=== PATIENT | female | born 1930 | race Caucasian/White ===

== ENCOUNTER 2016-09-16 01:48 | Inpatient (IN) | payer MEDICARE ==
[2016-09-16] VITALS (16 sets, daily range): BP systolic 99–145; BP diastolic 55–65; PULSE 56–64; RESP 16–20; TEMP 97.8–98.4; O2SAT 56–100
[~2016-09-16] VITALS: Ht 160 cm; Wt 55.7 kg
[~2016-09-16 01:48] MED LIST: ASPI81CH37 CHEW; PROP10TA6 PO
--- NOTE | 2016-09-16 02:01 | PD ---
HPI Chief Complaint: Cardiac Complaint Time Seen by Provider: 02:00 Travel History International Travel<30 days: No Contact w/Intl Traveler<30days: No Traveled to known affect area: No History of Present Illness HPI Patient is 87. She arrives with chest pressure which started after she got in bed tonight to sleep. She called EMS. She received aspirin and Zofran en route to the ER and symptoms improved. She states she may have had shortness of breath while she had the chest pain. Severity was moderate. She denies a personal history of coronary artery disease. She has not personal history of diabetes hypertension or hyperlipidemia. She is an avid golfer and quite active typically. She denies a past medical history. [facility] Social History Tobacco Use: No Allergies-Medications (Allergen,Severity, Reaction): Coded Allergies: No Known Allergies (Unverified , 09/12/16) Reported Meds & Prescriptions Reported Meds & Active Scripts Active Propranolol (Propranolol HCl) 10 Mg Tab 10 Mg PO Q12HR Reported Aspirin Low Dose (Aspirin) 81 Mg Chew 81 Mg CHEW DAILY Review of Systems Except as stated in HPI: all other systems reviewed are Neg General / Constitutional: No: Fever Cardiovascular: Positive: Chest Pain or Discomfort Physical Exam Narrative GENERAL: 86-year-old female pleasant well-nourished well-developed SKIN: Focused skin assessment warm/dry. HEAD: Atraumatic. Normocephalic. EYES: Pupils equal and round. No scleral icterus. No injection or drainage. ENT: No nasal bleeding or discharge. Mucous membranes pink and moist. NECK: Trachea midline. No JVD. CARDIOVASCULAR: Regular rate and rhythm. No murmur appreciated. RESPIRATORY: No accessory muscle use. Clear to auscultation. Breath sounds equal bilaterally. GASTROINTESTINAL: Abdomen soft, non-tender, nondistended. Hepatic and splenic margins not palpable. MUSCULOSKELETAL: No obvious deformities. No clubbing. No cyanosis. No edema. NEUROLOGICAL: Awake and alert. No obvious cranial nerve deficits. Motor grossly within normal limits. Normal speech. PSYCHIATRIC: Appropriate mood and affect; insight and judgment normal. Data Data Last Documented VS Vital Signs Date Time Temp Pulse Resp B/P Pulse Ox O2 Delivery O2 Flow Rate FiO2 09/16/16 02:40 56 18 100 09/16/16 01:56 97.8 145/65 Vital signs reviewed Orders Electrocardiogram (09/16/16 02:07) Basic Metabolic Panel (Bmp) (09/16/16 02:07) B-Type Natriuretic Peptide (09/16/16 02:07) Ckmb (Isoenzyme) Profile (09/16/16 02:07) Complete Blood Count With Diff (09/16/16 02:07) Magnesium (Mg) (09/16/16 02:07) Prothrombin Time / Inr (Pt) (09/16/16 02:07) Act Partial Throm Time (Ptt) (09/16/16 02:07) Troponin I (09/16/16 02:07) Chest, Single Ap (09/16/16 02:07) Ecg Monitoring (09/16/16 02:07) Bilateral Bp Monitoring (09/16/16 02:07) Iv Access Insert/Monitor (09/16/16 02:07) Oximetry (09/16/16 02:07) Oxygen Administration (09/16/16 02:07) Sodium Chloride 0.9% Flush (Ns Flush) (09/16/16 02:15) Ondansetron Inj (Zofran Inj) (09/16/16 02:45) Activity Bed Rest With Brp (09/16/16 04:59) Vital Signs (Adult) Q4H (09/16/16 04:59) Cardiac Rhythm .As Directed (09/16/16 04:59) Notify Dr: Other .PRN (09/16/16 04:59) Notify Parameters (09/16/16 04:59) Resp Oxygen Nasal Cannula (09/16/16 ) Diet Npo (09/16/16 Breakfast) Ckmb (Isoenzyme) Profile (09/16/16 04:59) Ckmb (Isoenzyme) Profile (09/16/16 07:59) Troponin I (09/16/16 04:59) Troponin I (09/16/16 07:59) Electrocardiogram (09/16/16 04:59) Electrocardiogram (09/16/16 07:59) ^ Obtain (09/16/16 04:59) Acetamin-Hydrocod 325-7.5 Mg ([place] 7.5 (09/16/16 05:00) Morphine Inj (Morphine Inj) (09/16/16 05:00) Ondansetron Inj (Zofran Inj) (09/16/16 05:00) Nitroglycerin Sl (Nitrostat Sl) (09/16/16 05:00) Aspirin Chew (Aspirin Chew) (09/16/16 05:00) Aspirin (Aspirin) (09/16/16 09:00) Temazepam (Restoril) (09/16/16 05:00) Alprazolam (Xanax) (09/16/16 05:00) Striker Off / Telemetry JOHN.Q8H (09/16/16 04:59) Admit Order (Ed Use Only) (09/16/16 04:59) Labs Laboratory Tests Test 09/16/16 02:19 White Blood Count 13.0 TH/MM3 Red Blood Count 4.62 MIL/MM3 Hemoglobin 13.9 GM/DL Hematocrit 42.9 % Mean Corpuscular Volume 92.8 FL Mean Corpuscular Hemoglobin 30.1 PG Mean Corpuscular Hemoglobin 32.4 % Concent Red Cell Distribution Width 13.4 % Platelet Count 198 TH/MM3 Mean Platelet Volume 8.9 FL Neutrophils (%) (Auto) 78.6 % Lymphocytes (%) (Auto) 11.2 % Monocytes (%) (Auto) 8.0 % Eosinophils (%) (Auto) 1.6 % Basophils (%) (Auto) 0.6 % Neutrophils # (Auto) 10.2 TH/MM3 Lymphocytes # (Auto) 1.4 TH/MM3 Monocytes # (Auto) 1.0 TH/MM3 Eosinophils # (Auto) 0.2 TH/MM3 Basophils # (Auto) 0.1 TH/MM3 CBC Comment DIFF FINAL Differential Comment Prothrombin Time 11.6 SEC Prothromb Time International 1.0 RATIO Ratio Activated Partial 24.2 SEC Thromboplast Time Sodium Level 143 MEQ/L Potassium Level 4.0 MEQ/L Chloride Level 108 MEQ/L Carbon Dioxide Level 28.0 MEQ/L Anion Gap 7 MEQ/L Blood Urea Nitrogen 21 MG/DL Creatinine 1.16 MG/DL Estimat Glomerular Filtration 45 ML/MIN Rate Random Glucose 178 MG/DL Calcium Level 8.5 MG/DL Magnesium Level 2.3 MG/DL Total Creatine Kinase 47 U/L Troponin I LESS THAN 0.02 NG/ML B-Type Natriuretic Peptide 107 PG/ML MDM Medical Decision Making Medical Screen Exam Complete: Yes Emergency Medical Condition: Yes Medical Record Reviewed: Yes Differential Diagnosis NSTEMI, unstable angina, coronary vasospasm, PE, PTX, aortic dissection, pericarditis, myocarditis, endocarditis, PNA, esophageal disease, aneurysm, musculoskeletal etiologies, anxiety, cocaine/sympathomimetic abuse Narrative Course EKG reveals a sinus bradycardia with a rate of 58 T-wave inversions in I and aVL appear new in comparison to 4 days prior, ST changes in the precordial leads looked similar to 4 days prior CBC & BMP Diagram 09/16/16 02:19 Troponin is less than 0.02 The BNP is 107 Chest x-ray reveals no acute cardiopulmonary disease The patient would benefit from a chest pain center protocol evaluation. She is agreeable with plan. Diagnosis Primary Impression: Chest pain Qualified Code: R07.9 - Chest pain, unspecified type Admitting Information Admitting Physician Requests: Tyler Baptiste MD Sep 16, 2016 02:01
[2016-09-16] MEDS ORDERED: SODIUM CHLORIDE 0.9% FLUSH 10 ML FLUSH IVF PRN (02:15)
--- NOTE | 2016-09-16 02:37 | RADRPT ---
EXAM DATE/TIME: 09/16/2016 02:19 [place] COMPARISON: No previous studies available for comparison. INDICATIONS : Nausea and vomiting. MEDICAL HISTORY : None. SURGICAL HISTORY : None. ENCOUNTER: Initial ACUITY: 1 day PAIN SCORE: 0/10 LOCATION: Bilateral chest FINDINGS: A single view of the chest demonstrates the lungs to be symmetrically aerated without evidence of mas s, infiltrate or effusion. The cardiomediastinal contours are unremarkable. Osseous structures are intact. CONCLUSION: No acute disease. Cabrera Cook Jr., MD on September 16, 2016 at 2:36 Board Certified Radiologist. This report was verified electronically.
[2016-09-16] MEDS ORDERED: ONDANSETRON HCL 4 MG/2 ML VIAL IV PUSH ONE (02:45)
[2016-09-16 02:54] LABS: AUTOMATED NEUTROPHIL # 10.2 TH/MM3 (1.8-7.7); BASOPHIL # 0.1 TH/MM3 (0-0.2); BASOPHIL % 0.6 % (0.0-2.0); EOSINOPHIL # 0.2 TH/MM3 (0-0.4); EOSINOPHIL % 1.6 % (0.0-4.0); HEMATOCRIT 42.9 % (35.0-46.0); HEMO FLAGS DIFF FINAL; LYMPH % 11.2 % (9.0-44.0); LYMPHOCYTE # 1.4 TH/MM3 (1.0-4.8); MEAN CELL VOLUME 92.8 FL (80.0-100.0); MEAN CORPUSCULAR HEMOGLOBIN 30.1 PG (27.0-34.0); MEAN CORPUSCULAR HGB CONC 32.4 % (32.0-36.0); NEUT % 78.6 % (16.0-70.0); PLATELET COUNT 198 TH/MM3 (150-450); RED BLOOD COUNT 4.62 MIL/MM3 (4.00-5.30); RED CELL DISTRIBUTION WIDTH 13.4 % (11.6-17.2)
[2016-09-16 03:07] LABS: APTT (PATIENT) 24.2 SEC (24.3-30.1); PROTHROMBIN TIME - PATIENT 11.6 SEC (9.8-11.6)
[2016-09-16 03:14] LABS: ANION GAP 7 MEQ/L (5-15); BLOOD UREA NITROGEN 21 MG/DL (7-18); CHLORIDE 108 MEQ/L (98-107); GLOMERULAR FILTRATION RATE 45 ML/MIN (>89); MAGNESIUM 2.3 MG/DL (1.5-2.5); SODIUM (NA) 143 MEQ/L (136-145)
[2016-09-16 03:34] LABS: CREATINE KINASE 47 U/L (26-192)
[2016-09-16] MEDS ORDERED: ASPIRIN 81 MG CHEW TAB PO ONE (05:00)
[2016-09-16] MEDS ORDERED: ONDANSETRON HCL 4 MG/2 ML VIAL IV PRN (05:00)
[2016-09-16] MEDS ORDERED: MORPHINE SULFATE 4 MG/ML INJ IV PRN (05:00)
[2016-09-16] MEDS ORDERED: TEMAZEPAM 15 MG CAP PO PRN (05:00)
[2016-09-16] MEDS ORDERED: NITROGLYCERIN 0.4 MG SL 25 TABS/BTL SL PRN (05:00)
[2016-09-16] MEDS ORDERED: ALPRAZolam 0.25 MG TAB PO PRN (05:00)
[2016-09-16] MEDS ORDERED: ACETAMINOPHEN/HYDROcodone 325 MG/7.5 MG TAB PO PRN (05:00)
[2016-09-16 07:31] LABS: CREATINE KINASE 107 U/L (26-192)
[2016-09-16 07:49] LABS: CKMB 20.8 NG/ML (0.5-3.6)
--- NOTE | 2016-09-16 08:45 | HHI.HP ---
HPI Primary Care Physician Unknown Chief Complaint Chest pressure History of Present Illness 86-year-old female presents to the emergency room for further evaluation of chest pressure. She is somewhat of a poor historian however she does remember trying to go to sleep around 11 PM and she did not feel well. Throughout the evening she continued not to feel well and she called her son. He lives in [place] and told her to call EMS. She cannot recall exact symptoms but remembers being diaphoretic. No shortness of breath, nausea, or vomiting. No known precipitating or relieving factors. Currently she is chest pain free. She has no pertinent medical history. No diabetes, hypertension, hyperlipidemia , or coronary artery disease. She is active. Has never required a supervisor purification. Review of Systems General: No fatigue,weakness, fever, chills, recent illness, or change in appetite. Has been in her general state of health. HEENT: No VIGIL, no vision changes CV: As stated above, no current chest pressure or pain. RESP: No SOB or cough GI: No nausea, vomiting, or diarrhea. No change in appetite, no unintentional weight gain or weight loss EXT: No lower leg edema, no parathesias MS: No discomfort or change in ROM NEURO: No change in memory, dizziness, difficulty with balance, LOC, motor/ sensory deficits Past Family Social History Allergies: Coded Allergies: No Known Allergies (Unverified , 09/12/16) Past Medical History None Past Surgical History None Reported Medications Reported Meds & Active Scripts Active Propranolol (Propranolol HCl) 10 Mg Tab 10 Mg PO [id number] not remember why she takes beta aaron, states she has been on it most of her adult life. Reported Aspirin Low Dose (Aspirin) 81 Mg Chew 81 Mg CHEW DAILY Active Ordered Medications Current Medications Medications (Trade) Dose Ordered Sig/Kaelyn Route Start Time Stop Time Status Last Admin ([place] 7.5-325 Mg) 1 tab Q4H PRN PO 09/16/16 05:00 (Morphine Inj) 2 mg Q4H PRN IV 09/16/16 05:00 (Zofran Inj) 4 mg Q6H PRN IV 09/16/16 05:00 (Nitrostat Sl) 0.4 mg Q5M PRN SL 09/16/16 05:00 (Aspirin) 325 mg DAILY PO 09/16/16 09:00 (Restoril) 15 mg HS PRN PO 09/16/16 05:00 (Xanax) 0.25 mg Q8H PRN PO 09/16/16 05:00 Social History No known diabetes, hyper tension, or hyperlipidemia. She is active and golfs daily. Lives alone, independent. Past cardiac testing No recent stress testing, never had cardiac catheterization, never required a supervisor purification. Physical Exam Vital Signs Vital Signs Date Time Temp Pulse Resp B/P Pulse Ox O2 Delivery O2 Flow Rate FiO2 09/16/16 07:14 64 16 129/58 97 Nasal Cannula 2 09/16/16 05:19 Nasal Cannula 2.00 09/16/16 02:40 56 18 100 09/16/16 01:58 56 18 99 09/16/16 01:56 97.8 57 18 145/65 99 Laboratory Laboratory Tests Test 09/16/16 09/16/16 02:19 06:37 White Blood Count 13.0 Red Blood Count 4.62 Hemoglobin 13.9 Hematocrit 42.9 Mean Corpuscular Volume 92.8 Mean Corpuscular Hemoglobin 30.1 Mean Corpuscular Hemoglobin 32.4 Concent Red Cell Distribution Width 13.4 Platelet Count 198 Mean Platelet Volume 8.9 Neutrophils (%) (Auto) 78.6 Lymphocytes (%) (Auto) 11.2 Monocytes (%) (Auto) 8.0 Eosinophils (%) (Auto) 1.6 Basophils (%) (Auto) 0.6 Neutrophils # (Auto) 10.2 Lymphocytes # (Auto) 1.4 Monocytes # (Auto) 1.0 Eosinophils # (Auto) 0.2 Basophils # (Auto) 0.1 CBC Comment DIFF FINAL Differential Comment Prothrombin Time 11.6 Prothromb Time International 1.0 Ratio Activated Partial 24.2 Thromboplast Time Sodium Level 143 Potassium Level 4.0 Chloride Level 108 Carbon Dioxide Level 28.0 Anion Gap 7 Blood Urea Nitrogen 21 Creatinine 1.16 Estimat Glomerular Filtration 45 Rate Random Glucose 178 Calcium Level 8.5 Magnesium Level 2.3 Total Creatine Kinase 47 107 Troponin I LESS THAN 0.02 0.91 B-Type Natriuretic Peptide 107 Creatine Kinase MB 20.8 Result Diagram: 09/16/1621809/16/16218 Imaging Last Impressions Chest X-Ray 09/16/16206 Signed Impressions: Service Date/Time: Ambrosio, September 16, 2016 02:19 - CONCLUSION: No acute disease. Cabrera Cook Jr., MD Assessment and Plan Assessment and Plan #1 Chest painpatient admitted to chest pain center however second troponin elevated during evening. Consult placed to hospitalist for further evaluation. This is been discussed with patient and she is agreeable to this plan a care. Kim Albrecht [facility] Sep 16, 2016 08:45
[2016-09-16] MEDS: ASPIRIN 325 MG TAB PO SCH (09:00)
[2016-09-16] MEDS ORDERED: PILL SPLITTER OTHER PRN (09:45)
[2016-09-16] MEDS ORDERED: HEPARIN SODIUM - IV 10,000 UNITS/10 ML VIAL IV ONE (10:00)
[2016-09-16] MEDS: METOPROLOL TARTRATE 25 MG TAB PO SCH ×2 (10:00→21:41)
[2016-09-16] MEDS ORDERED: HEPARIN-D5W INJ 250 ML IV SCH (10:00)
--- NOTE | 2016-09-16 10:41 | HHI.PR ---
Subjective Remarks Patient presented with transfer care due to elevated troponin. Patient seems like a very poor historian. She was interviewed in the [place]. Patient stated that she denies any shortness of breathing or any chest pain and that she came into the hospital because she felt. Reviewing medical records patient was admitted due to chest pain. Patient stated that her son told her to come to the emergency department. At the moment she denies any chest pain, shortness of breathing, lightheadedness dizziness, palpitation. She stated that she never had any symptoms. Patient is AAO 3. Patient denies any history of any types of bleed. Patient nurse is at the bedside. Objective Vitals Vital Signs Date Time Temp Pulse Resp B/P Pulse Ox O2 Delivery O2 Flow Rate FiO2 09/16/16 09:44 56 18 132/61 97 Nasal Cannula 2 09/16/16 09:36 Nasal Cannula 2.00 09/16/16 07:14 64 16 129/58 97 Nasal Cannula 2 09/16/16 05:19 Nasal Cannula 2.00 09/16/16 02:40 56 18 100 09/16/16 01:58 56 18 99 09/16/16 01:56 97.8 57 18 145/65 99 Result Diagram: 09/16/169 09/16/16218 Objective Remarks GENERAL: in NAD CARDIOVASCULAR: Regular rate and rhythm without murmurs, gallops, or rubs. RESPIRATORY: Breath sounds equal bilaterally. No accessory muscle use. GASTROINTESTINAL: Abdomen soft, non-tender, nondistended. MUSCULOSKELETAL: No cyanosis, or edema. BACK: Nontender without obvious deformity. No CVA tenderness. Medications and IVs Current Medications Sodium Chloride (NS Flush) 2 ml UNSCH PRN IVF FLUSH AFTER USING IV ACCESS; Start 09/16/16 at 02:15 Ondansetron HCl (Zofran Inj) 4 mg ONCE ONCE IV PUSH ; Start 09/16/16 at 02:45; Stop 09/16/16 at 02:46; Status DC Acetaminophen/ Hydrocodone Bitart ([place] 7.5-325 Mg) 1 tab Q4H PRN PO PAIN SCALE 1 TO 7; Start 09/16/16 at 05:00 Morphine Sulfate (Morphine Inj) 2 mg Q4H PRN IV PAIN SCALE 8 TO 10; Start 09/16 at 05:00 Ondansetron HCl (Zofran Inj) 4 mg Q6H PRN IV NAUSEA; Start 09/16/16 at 05:00 Nitroglycerin (Nitrostat Sl) 0.4 mg Q5M PRN SL CHEST PAIN; Start 09/16/16 at 05 :00 Aspirin (Aspirin Chew) 162 mg STAT ONCE PO Last administered on 09/16/16 05: 46; Start 09/16/16 at 05:00; Stop 09/16/16 at 05:01; Status DC Aspirin (Aspirin) 325 mg DAILY PO Last administered on 09/16/16 09:00; Start 09/16/16 at 09:00 Temazepam (Restoril) 15 mg HS PRN PO INSOMNIA; Start 09/16/16 at 05:00 Alprazolam (Xanax) 0.25 mg Q8H PRN PO ANXIETY; Start 09/16/16 at 05:00 Metoprolol Tartrate (Lopressor) 12.5 mg Q12HR PO ; Start 09/16/16 at 10:00 Miscellaneous (Pill Splitter) 1 ea UNSCH PRN OTHER SEE LABEL COMMENTS; Start at 09:45 Heparin Sodium (Porcine) (Heparin Inj) 3,000 units ONCE ONCE IV ; Start at 10:00; Stop 09/16/16 at 10:06; Status DC Heparin Sodium (Porcine) (Heparin Inj) 5,000 units UNSCH PRN IV APTT LESS THAN 25; Start 09/16/16 at 16:00 Heparin Sodium (Porcine) 2500 units 2,500 units UNSCH PRN IV APTT 25 TO 39; Start 09/16/16 at 16:00 Heparin Sodium/ Dextrose (Heparin-D5W Inj) 250 ml @ 0 mls/hr TITRATE IV ; Start 09/16/16 at 10:00 Nitroglycerin (Nitroglycerin 2% Oint) 0.5 inch Q6HR TOPICAL ; Start 09/16/16 at 12:00 A/P Assessment and Plan 86-year-old female who presented with Chest pain -Patient is poor historian she denied this to me by medical records stated that she complained of chest pain. -Patient troponin went from 0.02 to 0.91 to 1.62. -Concerning for an NSTEMI. I will start heparin drip, applied Nitropaste and give low dose of metoprolol if tolerated. Patient is already on aspirin. Will monitor and this CIC on telemetry. -I educated patient extensively on treatment risk, benefits and side effects of medication especially in regards to heparin drip and she is in agreement with treatment. -Will consult consultant rn for possible cardiac catheterization. -We'll also order an echo. NSTEMI -See treatment as above. Renal insufficiency -There is no baseline. Most likely this is chronic. Creatinine is 1.16 and GFR 45. -Continue to monitor closely. -Strict ins and outs. -Try to avoid nephrotoxins. -Will put patient on IV fluids since she may have a cardiac catheterization. DVT prophylaxis -She would be on a heparin drip. Discharge Planning Patient most likely will be discharged to home after treatment. Noelle Hurd MD Sep 16, 2016 10:41
[2016-09-16] MEDS: SODIUM CHLOR 0.9% 1000 ML INJ 1,000 ML IV SCH ×2 (11:06→21:43)
[2016-09-16] MEDS: NITROGLYCERIN 2% OINT 1 GM PACKET TOPICAL SCH ×2 (12:00→17:47)
[2016-09-16 12:55] LABS: APTT (PATIENT) 68.9 SEC (24.3-30.1); INTERNATIONAL NORMALIZED RATIO 1.1 RATIO
[2016-09-16 13:01] LABS: HEMATOCRIT 39.4 % (35.0-46.0); MEAN CELL VOLUME 90.1 FL (80.0-100.0); MEAN CORPUSCULAR HEMOGLOBIN 30.6 PG (27.0-34.0); PLATELET COUNT 179 TH/MM3 (150-450); RED BLOOD COUNT 4.37 MIL/MM3 (4.00-5.30); RED CELL DISTRIBUTION WIDTH 13.2 % (11.6-17.2); REVIEW FLAG FINAL; WHITE BLOOD COUNT 11.2 TH/MM3 (4.0-11.0)
--- NOTE | 2016-09-16 15:02 | EKG ---
Date Performed: 09/16/2016 Time Performed: 08:06:37 PTAGE: 86 years EKG: Sinus rhythm POSSIBLE LEFT ATRIAL ENLARGEMENT INCOMPLETE RIGHT BUNDLE BRANCH BLOCK INFERIOR MYOCARDIAL INFARCTION ABNORMAL ECG Nonspecific ST and T wave abnormalities PREVIOUS TRACING : 09/16/2016 05.33 Since previous tracing, no significant change noted DOCTOR: Alvino Mccormick Interpretating Date/Time 09/16/2016 15:02:33
[2016-09-16] MEDS ORDERED: HEPARIN SODIUM - IV 10,000 UNITS/10 ML VIAL IV PRN ×2 (16:00)
[2016-09-16] MEDS: ATORVASTATIN 40 MG TAB PO SCH (21:41)
--- NOTE | 2016-09-16 21:54 | MB ---
cc: YOUSUF JOLLEY DO DATE OF CONSULTATION 09/16/2016 REASON FOR CONSULTATION Chest pain with elevated troponins. HISTORY OF THE PRESENT ILLNESS Emily Olsen is a very pleasant 86-year-old female who presented to [facility] emergency room on September 16, 2016 due to chest pain. She attempted to try go to sleep the night before and did not feel well. Throughout the evening she continued to not feel well and called her son. She did remember having some chest pain and mildly diaphoretic, although she is not the best historian. Her son told her to call EMS. She denies shortness of breath, nausea or vomiting. On arrival she was originally scheduled placed in the chest pain unit but after having elevated troponins was admitted to the floor. In seeing her she is currently chest painfree on a heparin drip. PAST MEDICAL HISTORY Denies. PAST SURGICAL HISTORY Denies. ALLERGIES NO KNOWN DRUG ALLERGIES. MEDICATIONS Aspirin 81 mg daily. SOCIAL HISTORY She currently lives alone and independent. Denies tobacco, alcohol or drug abuse. FAMILY HISTORY Denies premature coronary artery disease or sudden cardiac within the family. REVIEW OF SYSTEMS 14-systems were reviewed including osteopathic. Pertinent positives and negatives as above, otherwise negative. PHYSICAL EXAMINATION VITAL SIGNS: Temperature 98.4, heart rate 60, blood pressure 119/65, respirations 20, pulse ox 96% on room air. GENERAL: In general the patient appears well in no acute distress. Alert, awake and oriented x3. HEENT: Extraocular muscles intact. Mucous membranes moist. NECK: Supple. No JVD at 45 degrees. No carotid bruits heard bilaterally. Carotid stroke is brisk in nature. CARDIOVASCULAR: Heart is regular rate and rhythm. Positive first and second heart sounds with a 1/6 crescendo-decrescendo murmur to the right sternal border. LUNGS: Clear to auscultation bilaterally. No wheezes, rales or rhonchi. ABDOMEN: Soft, nontender, nondistended. No organomegaly noted. EXTREMITIES: Show no clubbing, cyanosis or edema. Femoral and distal pulses intact bilaterally. NEUROLOGIC: No focal deficits. OSTEOPATHIC: Mild kyphoscoliosis. No lordosis or paraspinal tender points. LABORATORY FINDINGS Hemoglobin 13.4, hematocrit 39.4, platelets 179. Potassium 4.0, BUN 21, creatinine 1.16. Troponin 1.62. Electrocardiogram (September 16, 2016 at 08:06) sinus rhythm at 66 beats per minute, possible left atrial enlargement, incomplete right bundle branch block, possible old inferior infarction, nonspecific ST-T wave changes. IMPRESSION 1. Non-ST elevation myocardial infarction most likely type 1 in nature. 2. Chest pain concerning for coronary insufficiency, although the patient is a poor historian and it is difficult to determine the true nature of the chest pain. 3. Acute kidney injury versus chronic kidney disease. RECOMMENDATIONS 1. I discussed with Ms. Olsen about further management of her NSTEMI including ischemic workup versus medical management. She would like to think about it before continuing. 2. If she decides on medical management then she will be placed on appropriate medications. 3. As far as ischemic workup I do not believe a stress test would be in her best option as we can assume that she will have some ischemic lesion. If she decides on further ischemic evaluation, I would recommend cardiac catheterization. We will have to further see what her creatinine does whether this is chronic kidney disease or acute kidney injury. 4. I will leave her n.p.o. after midnight tonight and discuss with her in the morning whether she would like further evaluation versus medical management. She will discuss this with her son today. 5. We will check a 2-D echo to look at her overall left ventricular function, cardiac structure and possible valvopathies. 6. Further recommendations will be made based on the hospital course. Thank you for allowing me to see Emily Olsen. If there are any questions please do not hesitate to call. Yousuf Jolley DO VGP/KK /8:51 PM /9:44 PM
[2016-09-17] VITALS (24 sets, daily range): BP systolic 103–128; BP diastolic 50–82; PULSE 55–94; RESP 18–20; TEMP 97.6–99.2; O2SAT 93–99
[2016-09-17 00:36] LABS: APTT (PATIENT) 42.7 SEC (24.3-30.1)
[2016-09-17] MEDS: NITROGLYCERIN 2% OINT 1 GM PACKET TOPICAL SCH ×2 (05:40)
[2016-09-17 07:06] LABS: APTT (PATIENT) 40.4 SEC (24.3-30.1)
[2016-09-17 07:28] LABS: BICARBONATE 24.5 MEQ/L (21.0-32.0); HDL CHOLESTEROL 49.8 MG/DL (40.0-60.0); POTASSIUM 3.6 MEQ/L (3.5-5.1)
[2016-09-17] MEDS: ASPIRIN 325 MG TAB PO SCH (08:34)
[2016-09-17] MEDS: METOPROLOL TARTRATE 25 MG TAB PO SCH ×2 (08:34→21:04)
--- NOTE | 2016-09-17 11:35 | PD.CARD.PN ---
Subjective Subjective Remarks No chest pain, no shortness of breath Objective Medications Current Medications Medications (Trade) Dose Ordered Sig/Kaelyn Route Start Time Stop Time Status Last Admin (NS Flush) 2 ml UNSCH PRN IVF 09/16/16 02:15 ([place] 7.5-325 Mg) 1 tab Q4H PRN PO 09/16/16 05:00 (Morphine Inj) 2 mg Q4H PRN IV 09/16/16 05:00 (Zofran Inj) 4 mg Q6H PRN IV 09/16/16 05:00 (Nitrostat Sl) 0.4 mg Q5M PRN SL 09/16/16 05:00 (Aspirin) 325 mg DAILY PO 09/16/16 09:00 09/17/16 08:34 (Restoril) 15 mg HS PRN PO 09/16/16 05:00 (Xanax) 0.25 mg Q8H PRN PO 09/16/16 05:00 (Lopressor) 12.5 mg Q12HR PO 09/16/16 10:00 09/17/16 08:34 (Pill Splitter) 1 ea UNSCH PRN OTHER 09/16/16 09:45 (Heparin Inj) 5,000 units UNSCH PRN IV 09/16/16 16:00 Heparin Sodium (Porcine) 2500 units 2,500 units UNSCH PRN IV 09/16/16 16:00 (Heparin-D5W Inj) 250 ml @ 0 mls/hr TITRATE IV 09/16/16 10:00 09/16/16 10:40 Nitroglycerin 0.5 inch 0.5 inch Q6HR TOPICAL 09/16/16 12:00 (NS 1000 ml Inj) 1,000 ml @ 84 mls/hr [id number] IV 09/16/16 11:00 09/16/16 21:43 (Lipitor) 40 mg HS PO 09/16/16 21:00 09/16/16 21:41 Vital Signs / I&O Vital Signs Date Time Temp Pulse Resp B/P Pulse Ox O2 Delivery O2 Flow Rate FiO2 09/17/16 10:00 59 09/17/16 09:00 58 09/17/16 08:07 97.6 62 18 118/67 95 09/17/16 08:07 60 09/17/16 07:23 57 09/17/16 06:00 60 09/17/16 05:00 55 09/17/16 04:00 55 09/17/16 03:00 98.6 62 20 111/67 95 09/17/16 03:00 60 09/17/16 02:00 59 09/17/16 01:00 62 09/17/16 00:00 98.4 59 20 111/63 95 09/17/16 00:00 57 09/16/16 23:00 56 09/16/16 22:05 96 Nasal Cannula 2.00 09/16/16 22:00 60 09/16/16 21:00 60 09/16/16 20:00 98.2 63 20 118/58 96 09/16/16 20:00 60 09/16/16 19:00 60 09/16/16 18:00 59 09/16/16 17:00 57 09/16/16 16:00 58 09/16/16 15:00 98.4 62 20 119/65 96 09/16/16 15:00 60 09/16/16 13:37 61 18 99/55 96 Room Air I/O 09/16/16 09/16/16 09/16/16 09/17/16 09/17/16 09/17/16 07:00 15:00 23:00 07:00 15:00 23:00 Intake Total 758 ml 1320 ml Output Total 240 ml Balance 758 ml 1080 ml Intake Oral 240 ml 240 ml IV Total 518 ml 1080 ml Output Urine Total 240 ml # Voids 1 # Bowel Movements 0 Physical Exam GENERAL: NAD, AAOx3 SKIN: Warm and dry. HEAD: Atraumatic. Normocephalic. EYES: Pupils equal and round. No scleral icterus. No injection or drainage. ENT: No nasal bleeding or discharge. Mucous membranes pink and moist. NECK: Trachea midline. No JVD. CARDIOVASCULAR: Regular rate and rhythm. 1/6 crescendo-decrescendo to the RSB RESPIRATORY: No accessory muscle use. Clear to auscultation. Breath sounds equal bilaterally. GASTROINTESTINAL: Abdomen soft, non-tender, nondistended. Hepatic and splenic margins not palpable. MUSCULOSKELETAL: Extremities without clubbing, cyanosis, or edema. No obvious deformities. NEUROLOGICAL: Awake and alert. No obvious cranial nerve deficits. Motor grossly within normal limits. Five out of 5 muscle strength in the arms and legs. Normal speech. PSYCHIATRIC: Appropriate mood and affect; insight and judgment normal. Laboratory Laboratory Tests Test 09/16/16 09/16/16 09/17/16 09/17/16 12:23 16:27 00:10 05:43 White Blood Count 11.2 TH/MM3 Red Blood Count 4.37 MIL/MM3 Hemoglobin 13.4 GM/DL Hematocrit 39.4 % Mean Corpuscular Volume 90.1 FL Mean Corpuscular Hemoglobin 30.6 PG Mean Corpuscular Hemoglobin 34.0 % Concent Red Cell Distribution Width 13.2 % Platelet Count 179 TH/MM3 Mean Platelet Volume 8.9 FL Prothrombin Time 12.0 SEC Prothromb Time International 1.1 RATIO Ratio Activated Partial 68.9 SEC 49.0 SEC 42.7 SEC 40.4 SEC Thromboplast Time Sodium Level 143 MEQ/L Potassium Level 3.6 MEQ/L Chloride Level 111 MEQ/L Carbon Dioxide Level 24.5 MEQ/L Anion Gap 8 MEQ/L Blood Urea Nitrogen 19 MG/DL Creatinine 0.88 MG/DL Estimat Glomerular Filtration 61 ML/MIN Rate Random Glucose 92 MG/DL Calcium Level 8.0 MG/DL Triglycerides Level 115 MG/DL Cholesterol Level 200 MG/DL LDL Cholesterol 127 MG/DL HDL Cholesterol 49.8 MG/DL Cholesterol/HDL Ratio 4.01 RATIO Assessment and Plan Problem List: (1) NSTEMI (non-ST elevated myocardial infarction) (2) Chest pain Assessment and Plan 1) NSTEMI, discussed at length with Emily and her son, they would prefer medical management of her NSTEMI 2) Will plan on stopping heparin drip 3) Will watch in the hospital for 24 hours, plan discharge tomorrow 4) ASA changed to 81mg daily 5) Agree with low dose BB, continue statin Problem Qualifiers (1) Chest pain: Qualified Code: R07.9 - Chest pain, unspecified type Yousuf Butcher DO Sep 17, 2016 11:35
[2016-09-17] MEDS: SODIUM CHLOR 0.9% 1000 ML INJ 1,000 ML IV SCH ×2 (12:23→23:46)
--- NOTE | 2016-09-17 14:50 | HHI.PR ---
Subjective Remarks f/u for CP patient was a little emotional today she stated being at the hospital makes her miss her . no other complaints. Denied any CP, SOB, or palpitations. Nurse at the bedside. She stated she is depressed because she misses her . denied any SI or HI. Patient stated she does not need any treatment for it and that she will be okay once she gets to her house. Objective Vitals Vital Signs Date Time Temp Pulse Resp B/P Pulse Ox O2 Delivery O2 Flow Rate FiO2 09/17/16 14:01 75 09/17/16 13:06 65 09/17/16 12:18 57 09/17/16 12:18 97.9 57 18 118/64 97 09/17/16 11:40 67 09/17/16 10:00 59 09/17/16 09:00 58 09/17/16 08:07 97.6 62 18 118/67 95 09/17/16 08:07 60 09/17/16 07:23 57 09/17/16 06:00 60 09/17/16 05:00 55 09/17/16 04:00 55 09/17/16 03:00 98.6 62 20 111/67 95 09/17/16 03:00 60 09/17/16 02:00 59 09/17/16 01:00 62 09/17/16 00:00 98.4 59 20 111/63 95 09/17/16 00:00 57 09/16/16 23:00 56 09/16/16 22:05 96 Nasal Cannula 2.00 09/16/16 22:00 60 09/16/16 21:00 60 09/16/16 20:00 98.2 63 20 118/58 96 09/16/16 20:00 60 09/16/16 19:00 60 09/16/16 18:00 59 09/16/16 17:00 57 09/16/16 16:00 58 09/16/16 15:00 98.4 62 20 119/65 96 09/16/16 15:00 60 I/O 09/16/16 09/16/16 09/16/16 09/17/16 09/17/16 09/17/16 07:00 15:00 23:00 07:00 15:00 23:00 Intake Total 758 ml 1320 ml Output Total 240 ml Balance 758 ml 1080 ml Intake Oral 240 ml 240 ml IV Total 518 ml 1080 ml Output Urine Total 240 ml # Voids 1 # Bowel Movements 0 Result Diagram: 09/16/16 1223 09/17/16 0543 Objective Remarks GENERAL: in NAD CARDIOVASCULAR: Regular rate and rhythm without murmurs, gallops, or rubs. RESPIRATORY: Breath sounds equal bilaterally. No accessory muscle use. GASTROINTESTINAL: Abdomen soft, non-tender, nondistended. MUSCULOSKELETAL: No cyanosis, or edema. BACK: Nontender without obvious deformity. No CVA tenderness. Medications and IVs Current Medications Sodium Chloride (NS Flush) 2 ml UNSCH PRN IVF FLUSH AFTER USING IV ACCESS; Start 09/16/16 at 02:15 Ondansetron HCl (Zofran Inj) 4 mg ONCE ONCE IV PUSH ; Start 09/16/16 at 02:45; Stop 09/16/16 at 02:46; Status DC Acetaminophen/ Hydrocodone Bitart ([place] 7.5-325 Mg) 1 tab Q4H PRN PO PAIN SCALE 1 TO 7; Start 09/16/16 at 05:00 Morphine Sulfate (Morphine Inj) 2 mg Q4H PRN IV PAIN SCALE 8 TO 10; Start 09/16 at 05:00 Ondansetron HCl (Zofran Inj) 4 mg Q6H PRN IV NAUSEA; Start 09/16/16 at 05:00 Nitroglycerin (Nitrostat Sl) 0.4 mg Q5M PRN SL CHEST PAIN; Start 09/16/16 at 05 :00 Aspirin (Aspirin Chew) 162 mg STAT ONCE PO Last administered on 09/16/16 05: 46; Start 09/16/16 at 05:00; Stop 09/16/16 at 05:01; Status DC Aspirin (Aspirin) 325 mg DAILY PO Last administered on 09/17/16 08:34; Start 09/16/16 at 09:00; Stop 09/17/16 at 11:33; Status DC Temazepam (Restoril) 15 mg HS PRN PO INSOMNIA; Start 09/16/16 at 05:00 Alprazolam (Xanax) 0.25 mg Q8H PRN PO ANXIETY; Start 09/16/16 at 05:00 Metoprolol Tartrate (Lopressor) 12.5 mg Q12HR PO Last administered on 08:34; Start 09/16/16 at 10:00 Miscellaneous (Pill Splitter) 1 ea UNSCH PRN OTHER SEE LABEL COMMENTS; Start at 09:45 Heparin Sodium (Porcine) (Heparin Inj) 3,000 units ONCE ONCE IV Last administered on 09/16/16 10:38; Start 09/16/16 at 10:00; Stop 09/16/16 at 10:06 ; Status DC Heparin Sodium (Porcine) (Heparin Inj) 5,000 units UNSCH PRN IV APTT LESS THAN 25; Start 09/16/16 at 16:00; Stop 09/17/16 at 11:40; Status DC Heparin Sodium (Porcine) 2500 units 2,500 units UNSCH PRN IV APTT 25 TO 39; Start 09/16/16 at 16:00; Stop 09/17/16 at 11:40; Status DC Heparin Sodium/ Dextrose (Heparin-D5W Inj) 250 ml @ 0 mls/hr TITRATE IV Last administered on 09/16/16 10:40; Start 09/16/16 at 10:00; Stop 09/17/16 at 11:40 ; Status DC Nitroglycerin 0.5 inch 0.5 inch Q6HR TOPICAL ; Start 09/16/16 at 12:00; Stop at 11:33; Status DC Sodium Chloride (NS 1000 ml Inj) 1,000 ml @ 84 mls/hr [id number] IV Last administered on 09/17/16 12:23; Start 09/16/16 at 11:00 Atorvastatin Calcium (Lipitor) 40 mg HS PO Last administered on 09/16/16 21:41 ; Start 09/16/16 at 21:00 Aspirin (Aspirin Chew) 81 mg DAILY CHEW ; Start 09/18/16 at 09:00 A/P Assessment and Plan 86-year-old female who presented with Chest pain -Patient is poor historian she denied this to me by medical records stated that she complained of chest pain. -Patient troponin went from 0.02 to 0.91 to 1.62. -Concerning for an NSTEMI. I -Compounding Technician is ff and patient wants to continue with medical treatment. per Compounding Technician continue with heparin gt. NSTEMI -See treatment as above. Renal insufficiency -RESOLVED -maybe due to dehydration. DVT prophylaxis -She would be on a heparin drip. Discharge Planning Most likely can be discharge tomorrow once cleared by Compounding Technician. Noelle Hurd MD Sep 17, 2016 14:50
--- NOTE | 2016-09-17 20:01 | EC ---
Study Study Date:09/17/2016 STUDY CONCLUSIONS SUMMARY - Left ventricle: The cavity size was normal. Wall thickness was normal. Systolic function was normal. The estimated ejection fraction was 55%. Wall motion was normal; there were no regional wall motion abnormalities. - Aortic valve: Mild regurgitation. - Mitral valve: Mild to moderate regurgitation. - Tricuspid valve: Mild regurgitation. If LV function is below 40, please consider prescribing an ACEI or ARB or document rationale for non-use. PROCEDURE DATA STUDY STATUS: Elective. Procedure: Transthoracic echocardiography. Image quality was good. Scanning was performed from the parasternal, apical, and subcostal acoustic windows. Study completion: The patient tolerated the procedure well. Transthoracic echocardiography. M-mode, complete 2D, complete spectral Doppler, and color Doppler. Height: Height: 63in. Weight: Weight: 115.8lb. Body mass index: BMI: 20.5kg/m^2. Body surface area: BSA: 1.53m^2. Patient status: Inpatient. CARDIAC ANATOMY LEFT VENTRICLE: The cavity size was normal. Wall thickness was normal. Systolic function was normal. The estimated ejection fraction was 55%. Wall motion was normal; there were no regional wall motion abnormalities. AORTIC VALVE: Trileaflet; normal thickness leaflets. Doppler: Transvalvular velocity was within the normal range. There was no stenosis. Mild regurgitation. Valve area: 1.85cm^2 (Vmax). Indexed valve area: 1.21cm^2/m^2 (Vmax). Mean gradient: 3mm Hg (S). AORTA: Aortic root: The aortic root was normal in size. MITRAL VALVE: Structurally normal valve. Doppler: Transvalvular velocity was within the normal range. There was no evidence for stenosis. Mild to moderate regurgitation. LEFT ATRIUM: The atrium was normal in size. RIGHT VENTRICLE: The cavity size was normal. Wall thickness was normal. PULMONIC VALVE: Doppler: Transvalvular velocity was within the normal range. There was no evidence for stenosis. No regurgitation. TRICUSPID VALVE: Structurally normal valve. Doppler: Transvalvular velocity was within the normal range. Mild regurgitation. PULMONARY ARTERY: The main pulmonary artery was normal-sized. Systolic pressure was within the normal range. RIGHT ATRIUM: The atrium was normal in size. PERICARDIUM: There was no pericardial effusion. SYSTEMIC VEINS: Inferior vena cava: The vessel was normal in size. Patient weight: 115.8lb _Ejection fraction:_ 65-75% _Fractional shortening:_ 32% up to 5Kg 5-11.5Kg 11.6-22.9Kg 23-45Kg 45-57Kg Aortic Root 7-13 <17 13-22 17-27 17-27 LA diam 6-13 <23 24-38 33-47 37-40 RVID 10-17 7-15 7-15 7-18 8-17 LVIDd 12-22 <32 24-38 33-47 37-40 LVPW 2-4 3-6 5-7 6-8 7-8 IVS 2-4 3-6 5-7 6-8 7-8 BASIC MEASUREMENTS ADULT NORMAL Left ventricle LV internal dimension, ED, chordal *37.8 mm 43-52 level, PLAX LV internal dimension, ES, chordal 29.3 mm 23-38 level, PLAX Fractional shortening, chordal level, *22 % >29 PLAX LV posterior wall thickness, ED 8.36 mm IVS/LVPW ratio, ED 1.01 <1.3 Ventricular septum Septal thickness, ED 8.41 mm Aortic valve Leaflet separation 15 mm 15-26 BASIC MEASUREMENTS ADULT NORMAL Aortic valve Leaflet separation 15 mm 15-26 Aorta Root diameter, ED 26 mm 20-37 Left atrium Anterior-posterior dimension, ES 25 mm 19-40 Anterior-posterior dimension index, ES 1.63 cm/m^2 <2.2 LA/aortic root ratio 0.96 DOPPLER MEASUREMENTS ADULT NORMAL Main pulmonary artery Pressure, S 28 mm Hg =30 Pressure, ED 13 mm Hg Aortic valve Peak velocity, S 112 cm/s Mean velocity, S 84.3 cm/s VTI, S 27.6 cm Mean gradient, S 3 mm Hg Valve area, Vmax 1.85 cm^2 Valve area index, Vmax 1.21 cm^2/m^2 Regurgitant velocity, ED 289 cm/s Regurgitant deceleration 757 cm/s^2 Regurgitant pressure half-time 1138 ms Regurgitant gradient, ED 33 mm Hg Mitral valve Peak E-wave velocity 36.3 cm/s Peak A-wave velocity 61.2 cm/s Deceleration time *275 ms 150-230 Peak E/A ratio 0.6 Maximal regurgitant velocity 429 cm/s Tricuspid valve Regurgitant peak velocity 223 cm/s Peak RV-RA gradient, S 20 mm Hg Systemic veins Estimated CVP 10 mm Hg Right ventricle RV pressure, S *30 mm Hg <30 Pulmonic valve Peak velocity, S 77.4 cm/s Regurgitant velocity, ED 82.8 cm/s LEGEND: Mean values are shown as u=mean value. Asterisk (*) cruz values outside specified normal range. Abdirahman Burr [id number]
[2016-09-17] MEDS: ATORVASTATIN 40 MG TAB PO SCH (21:04)
[2016-09-18] VITALS (16 sets, daily range): BP systolic 105–134; BP diastolic 60–77; PULSE 51–84; RESP 20; TEMP 98.5–99.1; O2SAT 94–98
[2016-09-18 07:52] LABS: BICARBONATE 25.9 MEQ/L (21.0-32.0); POTASSIUM 3.6 MEQ/L (3.5-5.1)
[2016-09-18] MEDS ORDERED: ASPIRIN 81 MG CHEW TAB CHEW SCH (09:00)
[2016-09-18] MEDS: METOPROLOL TARTRATE 25 MG TAB PO SCH (09:33)
[2016-09-18] MEDS: SODIUM CHLOR 0.9% 1000 ML INJ 1,000 ML IV SCH (10:40)
--- NOTE | 2016-09-18 11:10 | PD.CARD.PN ---
Subjective Subjective Remarks No chest pain, no shortness of breath, up out of bed to the chair Objective Medications Current Medications Medications (Trade) Dose Ordered Sig/Kaelny Route Start Time Stop Time Status Last Admin (NS Flush) 2 ml UNSCH PRN IVF 09/16/16 02:15 ([place] 7.5-325 Mg) 1 tab Q4H PRN PO 09/16/16 05:00 (Morphine Inj) 2 mg Q4H PRN IV 09/16/16 05:00 (Zofran Inj) 4 mg Q6H PRN IV 09/16/16 05:00 (Nitrostat Sl) 0.4 mg Q5M PRN SL 09/16/16 05:00 (Restoril) 15 mg HS PRN PO 09/16/16 05:00 (Xanax) 0.25 mg Q8H PRN PO 09/16/16 05:00 (Lopressor) 12.5 mg Q12HR PO 09/16/16 10:00 09/18/16 09:33 Miscellaneous 1 ea 1 ea UNSCH PRN OTHER 09/16/16 09:45 (NS 1000 ml Inj) 1,000 ml @ 84 mls/hr [id number] IV 09/16/16 11:00 09/17/16 23:46 (Lipitor) 40 mg HS PO 09/16/16 21:00 09/17/16 21:04 (Aspirin Chew) 81 mg DAILY CHEW 09/18/16 09:00 09/18/16 09:33 Vital Signs / I&O Vital Signs Date Time Temp Pulse Resp B/P Pulse Ox O2 Delivery O2 Flow Rate FiO2 09/18/16 06:00 68 09/18/16 05:00 66 09/18/16 04:00 58 09/18/16 03:00 98.5 69 20 105/60 96 09/18/16 03:00 51 09/18/16 02:00 61 09/18/16 01:00 65 09/18/16 00:00 72 09/17/16 23:00 99.2 73 20 125/82 93 09/17/16 23:00 68 09/17/16 22:00 94 09/17/16 21:00 66 09/17/16 20:00 66 09/17/16 20:00 98.9 72 20 128/65 95 09/17/16 19:00 72 09/17/16 18:03 58 09/17/16 17:04 61 09/17/16 16:14 60 09/17/16 16:14 98.1 60 18 103/50 99 09/17/16 15:06 61 09/17/16 14:01 75 09/17/16 13:06 65 09/17/16 12:18 57 09/17/16 12:18 97.9 57 18 118/64 97 09/17/16 11:40 67 I/O 09/17/16 09/17/16 09/17/16 09/18/16 09/18/16 09/18/16 07:00 15:00 23:00 07:00 15:00 23:00 Intake Total 1320 ml 1404 ml 1391 ml Output Total 240 ml 450 ml 700 ml Balance 1080 ml 954 ml 691 ml Intake Oral 240 ml 480 ml 360 ml IV Total 1080 ml 924 ml 1031 ml Output Urine Total 240 ml 450 ml 700 ml # Voids 1 # Bowel Movements 0 0 Physical Exam GENERAL: NAD, AAOx3 SKIN: Warm and dry. HEAD: Atraumatic. Normocephalic. EYES: Pupils equal and round. No scleral icterus. No injection or drainage. ENT: No nasal bleeding or discharge. Mucous membranes pink and moist. NECK: Trachea midline. No JVD. CARDIOVASCULAR: Regular rate and rhythm. 1/6 crescendo-decrescendo to the RSB RESPIRATORY: No accessory muscle use. Clear to auscultation. Breath sounds equal bilaterally. GASTROINTESTINAL: Abdomen soft, non-tender, nondistended. Hepatic and splenic margins not palpable. MUSCULOSKELETAL: Extremities without clubbing, cyanosis, or edema. No obvious deformities. NEUROLOGICAL: Awake and alert. No obvious cranial nerve deficits. Motor grossly within normal limits. Five out of 5 muscle strength in the arms and legs. Normal speech. PSYCHIATRIC: Appropriate mood and affect; insight and judgment normal. Laboratory Laboratory Tests Test 09/18/16 07:02 Sodium Level 143 MEQ/L Potassium Level 3.6 MEQ/L Chloride Level 110 MEQ/L Carbon Dioxide Level 25.9 MEQ/L Anion Gap 7 MEQ/L Blood Urea Nitrogen 13 MG/DL Creatinine 0.87 MG/DL Estimat Glomerular Filtration 62 ML/MIN Rate Random Glucose 89 MG/DL Calcium Level 8.2 MG/DL Assessment and Plan Problem List: (1) NSTEMI (non-ST elevated myocardial infarction) (2) Chest pain Assessment and Plan 1) NSTEMI, discussed at length with Emily and her son, they would prefer medical management of her NSTEMI 2) Continue ASA/BB/Lipitor 3) EF 55% 4) Cardiovascularly stable for discharge 5) Concern for her occasional confusion/forgetfulness especially going home alone, although son plans to stay with her for a bit Son states this is her baseline, will defer to primary Problem Qualifiers (1) Chest pain: Qualified Code: R07.9 - Chest pain, unspecified type Yousuf Butcher DO Sep 18, 2016 11:10
[2016-09-18] MEDS ORDERED: METO25TA3 PO (12:28)
[2016-09-18] MEDS ORDERED: ATOR40TA16 PO (12:28)
--- NOTE | 2016-09-18 12:29 | HHI.DCPOC ---
Discharge Care Plan Diagnosis: (1) NSTEMI (non-ST elevated myocardial infarction) Goals to Promote Your Health * To prevent worsening of your condition and complications * To maintain your health at the optimal level Directions to Meet Your Goals Take your medications as prescribed Follow your dietary instruction Follow activity as directed Keep your appointments as scheduled Take your immunizations and boosters as scheduled If your symptoms worsen call your PCP, if no PCP go to Urgent Care Center or Emergency Room Smoking is Dangerous to Your Health. Avoid second hand smoke Call the 24-hour hour crisis hotline for domestic abuse at Noelle Hurd MD Sep 18, 2016 12:29
--- NOTE | 2016-09-18 12:29 | HHI.DS ---
Discharge Summary Admission Date Sep 16, 2016 at 10:25 Discharge Date: Sep 18, 2016 Admitting Diagnosis Chest Pain (1) NSTEMI (non-ST elevated myocardial infarction) ICD Code: I21.4 Diagnosis: Principal (2) Dementia ICD Code: F03.90 Diagnosis: Secondary Procedures none Brief History - From Admission 86-year-old female presents to the emergency room for further evaluation of chest pressure. She is somewhat of a poor historian however she does remember trying to go to sleep around 11 PM and she did not feel well. Throughout the evening she continued not to feel well and she called her son. He lives in [place] and told her to call EMS. She cannot recall exact symptoms but remembers being diaphoretic. No shortness of breath, nausea, or vomiting. See history of present illness for further information. CBC/BMP: 09/16/16 1223 09/18/16 0702 Significant Findings Laboratory Tests Test 09/16/16 09/16/16 09/16/16 09/16/16 02:19 06:37 08:10 12:23 White Blood Count 13.0 TH/MM3 11.2 TH/MM3 (4.0-11.0) (4.0-11.0) Neutrophils (%) (Auto) 78.6 % (16.0-70.0) Neutrophils # (Auto) 10.2 TH/MM3 (1.8-7.7) Monocytes # (Auto) 1.0 TH/MM3 (0-0.9) Activated Partial 24.2 SEC 68.9 SEC Thromboplast Time (24.3-30.1) (24.3-30.1) Chloride Level 108 MEQ/L (98-107) Blood Urea Nitrogen 21 MG/DL (7-18) Creatinine 1.16 MG/DL (0.50-1.00) Estimat Glomerular Filtration 45 ML/MIN (>89) Rate Random Glucose 178 MG/DL (74-106) Troponin I LESS THAN 0.02 0.91 NG/ML 1.62 NG/ML NG/ML (0.02-0.05) (0.02-0.05) (0.02-0.05) B-Type Natriuretic Peptide 107 PG/ML (0-100) Creatine Kinase MB 20.8 NG/ML (0.5-3.6) Prothrombin Time 12.0 SEC (9.8-11.6) Test 09/16/16 09/17/16 09/17/16 09/18/16 16:27 00:10 05:43 07:02 Activated Partial 49.0 SEC 42.7 SEC 40.4 SEC Thromboplast Time (24.3-30.1) (24.3-30.1) (24.3-30.1) Chloride Level 111 MEQ/L 110 MEQ/L (98-107) (98-107) Blood Urea Nitrogen 19 MG/DL (7-18) Estimat Glomerular Filtration 61 ML/MIN (>89) 62 ML/MIN (>89) Rate Calcium Level 8.0 MG/DL 8.2 MG/DL (8.5-10.1) (8.5-10.1) LDL Cholesterol 127 MG/DL (0-99) Imaging Last Impressions Chest X-Ray 09/16/16 0207 Signed Impressions: Service Date/Time: Friday, September 16, 2016 02:19 - CONCLUSION: No acute disease. Cabrera Cook Jr., MD PE at Discharge GENERAL: in NAD CARDIOVASCULAR: Regular rate and rhythm without murmurs, gallops, or rubs. RESPIRATORY: Breath sounds equal bilaterally. No accessory muscle use. GASTROINTESTINAL: Abdomen soft, non-tender, nondistended. MUSCULOSKELETAL: No cyanosis, or edema. BACK: Nontender without obvious deformity. No CVA tenderness. Pt update on day of discharge Follow-up for chest pain Patient denies any chest pain, shortness of breathing, palpitation and his dizziness. Patient very anxious to go back home. She stated that she wants to go back home so she can play golf and go bicycling. Nurse was concerned that patient is intermittently confused. Patient is very alert and she is able to answer questions appropriately. She did not know location or date which is very common in a patient with dementia. I spoke to patient's son Alex Rivera in regards to the nurse concern and per her son who has been seeing patient every day while she was hospitalized he stated that this patient is back to her baseline. He stated that it is part of her dementia in which she is not able to recall dates and sometimes with location. But he stated that she is fully functioning and is very independent. Patient stated that she wants to go home. I relayed this to the son who also agrees that patient should go home. He stated that he will stay with patient to make sure that she is okay and if that she isn't she will live with him. I also went over about prognosis and clinical course of dementia with her son and he stated that he understands. He stated that when patient becomes dependent that she will move in with him in [place]. Per son he tried multiple times to get patient to move in with him but she declined. He stated that he will not force his mother to do anything against her will especially when she is full functioning. Son also confirmed with me with the information that she has given to me. He stated that she does play golf on her own and she does ride a bicycle. Patient has never been confused with me since she was hospitalized. She is a poor historian which is due to her dementia. Hospital Course 86-year-old female who presented with NSTEMI -Patient is poor historian she denied this to me by medical records stated that she complained of chest pain. -Patient troponin went from 0.02 to 0.91 to 1.62. -Concerning for an NSTEMI. -Patient was put on aspirin, statin, beta aaron, heparin drip. Television Maintenance Man consulted in which patient and her son prefer medical treatment and refused chronic catheterization. -Heparin drip was continued for 2 days. She was discharged on aspirin statin and beta aaron. -At the time of discharge she was chest pain-free. Renal insufficiency -RESOLVED -maybe due to dehydration. Dementia -Mild to moderate. -Exacerbated due to change in environment. -Patient was at her baseline which was confirmed by her son. Pt Condition on Discharge: Stable Discharge Disposition: Discharge Home Discharge Time: > 30 minutes Discharge Instructions DIET: Follow Instructions for: Heart Healthy Diet Activities you can perform: Regular-No Restrictions Follow up Referrals: PCP Follow-up - 1 Week New Medications: Atorvastatin (Atorvastatin) 40 Mg Tab 40 MG PO HS CAD #30 Ref 0 TAB Metoprolol Tartrate (Metoprolol Tartrate) 25 Mg Tab 12.5 MG PO Q12HR CAD #60 Ref 0 TAB Continued Medications: Aspirin (Aspirin Low Dose) 81 Mg Chew 81 MG CHEW DAILY Ref 0 TAB Discontinued Medications: Propranolol (Propranolol) 10 Mg Tab 10 MG PO Q12HR #90 Ref 3 TAB Noelle Hurd MD Sep 18, 2016 12:29
--- NOTE | 2016-09-18 13:16 | EKG ---
Date Performed: 09/16/2016 Time Performed: 05:33:27 PTAGE: 86 years EKG: Sinus rhythm POSSIBLE LEFT ATRIAL ENLARGEMENT INCOMPLETE RIGHT BUNDLE BRANCH BLOCK INFERIOR MYOCARDIAL INFARCTION , POSSIBLY ACUTE T-WAVE ABNORMALITY, CONSIDER LATERAL ISCHEMIA ABNORMAL ECG PREVIOUS TRACING : 09/16/2016 01.57 No significant change from previous tracing noted. DOCTOR: Randy Figueredo Interpretating Date/Time 09/18/2016 13:16:04
--- NOTE | 2016-09-18 13:18 | EKG ---
Date Performed: 09/16/2016 Time Performed: 01:57:12 PTAGE: 86 years EKG: SINUS BRADYCARDIA POSSIBLE LEFT ATRIAL ENLARGEMENT INCOMPLETE RIGHT BUNDLE BRANCH BLOCK INF ERIOR MYOCARDIAL INFARCTION, ACUTE T-WAVE ABNORMALITY, CONSIDER LATERAL ISCHEMIA ABNORMAL ECG PREVIOUS TRACING : 04/19/2000 10.15 Compared to previous tracing, acute inferior myocardial inf arction pattern is now present. DOCTOR: Randy Figueredo Interpretating Date/Time 09/18/2016 13:16:58
[2016-09-25] MEDS ORDERED: OMEGCAP PO (03:08)
[2016-09-25] MEDS ORDERED: B COTAB3 PO (03:08)
[2016-10-30] MEDS ORDERED: METO25TA3 PO (17:43)
[2016-10-30] MEDS ORDERED: ASPI81CH37 CHEW (17:43)
[2016-10-30] MEDS ORDERED: ATOR40TA16 PO (17:43)
== END 2016-09-18 15:29 | disposition home or self-care (01) | DRG 282 ==
LOC: NEPC 01:48 → NEDA 05:01 → OBSVTOIN 10:25 → HCPC 15:00 → HCIS 15:22
PROVIDERS: ADMIT Family Medicine; ATTEND Family Medicine
DX: I21.4 Non-ST elevation (NSTEMI) myocardial infarction (principal); E86.0 Dehydration; F03.90 Unspecified dementia, unspecified severity, without behavioral disturbance, psychotic disturbance, mood disturbance, and anxiety; N28.9 Disorder of kidney and ureter, unspecified; Z79.82 Long term (current) use of aspirin
CPT/HCPCS: 71010; 80048; 80061; 82550; 82552; 83735; 83880; 84443; 84484; 85025; 85027; 85610; 85730; 93005; 93306; J1644; J7030